=== PATIENT | male | born 1990 | race Caucasian/White ===

== ENCOUNTER 2017-01-08 16:39 | Emergency (ER) | payer BC ==
[~2017-01-08] VITALS: Ht 185.4 cm; Wt 113.4 kg
--- NOTE | ~2017-01-08 | EKG ---
[place] [address] [facility] [place] [address] ELECTROCARDIOGRAM REPORT Name: LETICIA KAY Room #: DEP [facility]#: [id number] Admission: 01/08/17 Attend Phys: Discharge: 01/08/17 Date of : 86 Report #: [id number] THIS REPORT FOR: //name// [facility] ED Test Date: 2017-01-08 Test Time: 16:46:01 Pat Name: LETICIA KAY Department: Room: Gender: M Impress Associate: [id number] : 1990 Requested By: Victoriano Sultana Order Number: [id number] MD: Yousuf Broderick Measurements Intervals Paia Rate: 75 P: 8 [place]: 150 QRS: 0 QRSD: 102 T: 5 QT: 367 QTc: 410 Interpretive Statements Sinus rhythm Baseline wander in lead(s) V5 Compared to ECG 09/07/2011 18:03:30 Sinus tachycardia no longer present Right-axis deviation no longer present Electronically Signed On 01-09-2017 8:41:52 CDT by Yousuf Broderick [email or web address] <ELECTRONICALLY SIGNED> By: Yousuf Broderick MD, [facility] [id number] 45 Yousuf Broderick MD, [facility] /EPI
[2017-01-08] MEDS ORDERED: [UNRECOGNIZED DRUG - REMARK] (16:44)
[2017-01-08 16:58] LABS: ABSOLUTE NEUTROPHILS 2.5 thou/uL (1.4-8.2); BASOPHILS 1.1 % (0.0-2.0); EOSINOPHILS 5.7 % (0.0-3.0); HEMATOCRIT 50.1 % (42.0-52.0); HEMOGLOBIN 17.1 gm/dL (14.0-18.0); LYMPHOCYTES 30.8 % (24.0-44.0); MCH 29.7 pg (26.0-34.0); MCHC 34.2 g/dL (28.0-37.0); MCV 86.9 fL (80.0-100.0); MONOCYTES 11.2 % (1.0-8.0); PLATELET COUNT 205 thou/uL (150-400); POLYS 51.2 % (36.0-66.0); RBC 5.76 mil/uL (4.50-6.00); RDW 12.6 % (10.5-14.5); WBC 4.8 thou/uL (4.0-11.0)
[2017-01-08 17:01] LABS: MANUAL DIFF NO
[2017-01-08 17:06] LABS: ANION GAP 7 mmol/L (7-16); BUN 12 mg/dL (7-18); CALCIUM 9.6 mg/dL (8.5-10.1); CHLORIDE 107 mmol/L (98-107); CO2 28 mmol/L (21-32); GLUCOSE 124 mg/dL (74-106); POTASSIUM 4.5 mmol/L (3.5-5.1); SODIUM 142 mmol/L (136-145)
[2017-01-08 17:14] LABS: ALBUMIN 4.2 g/dL (3.4-5.0); ALKALINE PHOSPHATASE 65 U/L (46-116); SGOT 44 U/L (15-37); SGPT 101 U/L (30-65); TOTAL BILIRUBIN 0.5 mg/dL (<0.1-1.0); TOTAL PROTEIN 7.9 g/dL (6.4-8.2); TROPONIN-I < 0.04 ng/mL (<0.04-0.07)
[2017-01-08 17:28] VITALS: BP 146/99
== END 2017-01-08 17:40 | disposition home or self-care (01) ==
LOC: ER 16:39
PROVIDERS: Physician Assistant
DX: R07.89 Other chest pain (principal); F41.9 Anxiety disorder, unspecified; F43.9 Reaction to severe stress, unspecified; F10.99 Alcohol use, unspecified with unspecified alcohol-induced disorder

== ENCOUNTER → 2019-08-24 | Outpatient (CLI) | payer OTHER ==
[~2019-08-24] MED LIST: [UNRECOGNIZED DRUG - REMARK]
== END ==
LOC: RAD 09:03
DX: R05 Cough (principal)